=== PATIENT | female | born 1980 | race African-American/Black ===

== ENCOUNTER 2021-11-08 06:28 | Emergency (ER) | payer MEDICAID ==
[2021-11-08 06:50] VITALS: BP 157/89
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
[2021-11-08] MEDS ORDERED: IBUPROFEN 600 MG TAB PO ONE (16:10)
[2021-11-08] MEDS ORDERED: ACETAMINOPHEN 500 MG TAB PO ONE (16:10)
--- NOTE | 2021-11-08 16:38 | Vascular Lab Report ---
DUPLEX DOPPLER LOWER EXTREMITY VEINS, LEFT INDICATION / CLINICAL INFORMATION: pain - lower. TECHNIQUE: Duplex doppler imaging was performed through the veins of the left lower extremity using v enous compression and other maneuvers. COMPARISON: None available. FINDINGS: LEFT COMMON FEMORAL VEIN: Negative. LEFT FEMORAL VEIN: Negative. LEFT POPLITEAL VEIN: Negative. LEFT CALF VEINS: Negative. ADDITIONAL FINDINGS: None. IMPRESSION: 1. No sonographic evidence for DVT in the left lower extremity. Signer Name: Han Singh MD Signed: 11/08/2021 4:34 PM Workstation Name: [email or web address]
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
== END 2021-11-08 18:00 | disposition home or self-care (01) ==
LOC: ED 06:28
DX: S80.12XA Contusion of left lower leg, initial encounter (principal); M79.89 Other specified soft tissue disorders; F41.9 Anxiety disorder, unspecified; Y09 Assault by unspecified means; Y93.89 Activity, other specified; Y92.89 Other specified places as the place of occurrence of the external cause; Y99.8 Other external cause status
CPT/HCPCS: 99284